=== PATIENT | male | born 1990 | race Two or more races ===

== ENCOUNTER 2024-02-04 01:55 | Emergency (ER) | payer MEDICAID, OTHER ==
[~2024-02-04] VITALS: Ht 177.8 cm; Wt 81.2 kg
[2024-02-04 02:36] VITALS: BP 131/87; PULSE 92; RESP 16; O2SAT 98
[2024-02-04] MEDS ORDERED: LIDOCAINE 1% HCL (LOCAL ANESTH.) INJ 20ML MDV ID ONE (03:15)
== END 2024-02-04 03:28 | disposition left against medical advice (07) ==
LOC: ER 01:55
DX: M79.644 Pain in right finger(s) (principal); Z53.21 Procedure and treatment not carried out due to patient leaving prior to being seen by health care provider